=== PATIENT | male | born 1990 | race Caucasian/White ===

== ENCOUNTER 2023-12-26 20:48 | Emergency (ER) | payer SELFPAY ==
[2023-12-26 20:17] VITALS: PULSE 0; RESP 14; TEMP 35; O2SAT 34
--- NOTE | 2023-12-26 20:46 | W.ED.GENAD ---
Discharge Plan Disposition Patient Disposition: Discharge Details Clinical Impression: Cardiac arrest ED Provider: Simon Holloway HPI HPI Narrative: 33-year-old male brought in by EMS in cardiac arrest, witnessed collapse and cardiac arrest around 7 PM this evening, no preceding events per collateral information, EMS arrived to the scene and initiated CPR, Igel placement, and initial resuscitation, contact was made for inferior medical decision making approximately 20 minutes into the resuscitation, after review of clinical information and discussion with family patient was transported for further resuscitation. Per family patient has had some issues with fentanyl and cocaine in the past. Recent stressors including a friend being deported. Otherwise in normal health. Review of Systems Narrative: Review of Systems Constitutional: Cardiac arrest Eyes: negative ENT: negative Cardiovascular: Cardiac arrest Respiratory: Cardiac arrest Gastrointestinal: negative : negative Musculoskeletal: negative Skin: negative Neurologic: negative Psych: negative Exam Narrative Exam Narrative: Physical Examination General: Comatose in cardiac arrest HEENT: normocephalic, atraumatic; fixed dilated pupils Neck: supple, trachea midline Chest: normal to inspection Respiratory: I-gel in place on arrival, bilateral breath sounds intact, normal chest rise Cardiac: PEA on monitor, pulseless Skin: Pallor and cyanosis diffuse Neuro: Comatose Procedures Intubation Laryngoscope: [place] ET Tube Size: 7.5 ET Tube Uncuffed: No Additional Comments: End-tidal CO2 of 15, chest rise, tube fogging Medical Decision Making 33-year-old male brought in by EMS in cardiac arrest, witnessed arrest around 7 PM, collapsed in the backyard, CPR and initial resuscitation in the field by EMS Igel placed in field, initial end-tidal CO2 of 4, patient given multiple rounds of epinephrine initiated normal saline bolus multiple rounds of Narcan without response, initially PEA followed by multiple rounds of asystole EMS initially called for medical control decision making regarding possible cessation of resuscitation however after discussion with family the decision was made to bring patient in for further resuscitation. On arrival patient was noted to be in cardiac arrest PEA on monitor, diffusely cyanotic, emesis noted around nares and mouth, i-gel in place, 2 attempts with direct laryngoscopy unsuccessful due to habitus, successful intubation on third attempt with assistance of glide scope. Oxygen saturations in the low 90s during compressions, 10 rounds of CPR including administration of epinephrine bicarbonate and calcium gluconate, persistent PEA, cardiac standstill on monitor. Given almost 2 hours of downtime, low end-tidal CO2, PEA and cardiac standstill on ultrasound there is low chance of meaningful neurologic recovery and return of spontaneous circulation. Offered for family to be present during last rounds of resuscitation they have declined. Time of called 8:43 PM. Family coming to bedside postresuscitation. Quality:SDOH Health Related Social Needs: No Data to Display PFSH All Active Problems (Updated 12/26/23 @ 20:58 by Simon Holloway MD) Cardiac arrest (Acute) Social History Smoking risk assessment performed?: No
[2023-12-26 21:38] VITALS: PULSE 0; RESP 0; TEMP 35; O2SAT 0
--- NOTE | 2023-12-26 23:49 | NUR.NOTE ---
Unable to discharge patient at time code was called which was 2041 as physician seen by time is different.Nursing Note:
== END 2023-12-26 21:41 | disposition expired ==
LOC: ER 21:23
PROVIDERS: Emergency Provider Emergency Medicine
DX: I46.9 Cardiac arrest, cause unspecified (principal); R40.2A Nontraumatic coma due to underlying condition
CPT/HCPCS: 31500; 99285

== ENCOUNTER 2023-12-27 09:32 | Day surgery (SDC) | payer OTHER, SELFPAY | END 2023-12-27 09:33 | disposition home or self-care (01) | LOC: DSU 09:35 | DX: Z52.9 Donor of unspecified organ or tissue (principal) ==